=== PATIENT | male | born 1970 | race Asian ===

== ENCOUNTER 2017-05-17 05:23 | Outpatient (CLI) | payer OTHER | END 2017-05-17 05:28 | disposition short-term general hospital (02) | LOC: AMB 05:23 | DX: R56.9 Unspecified convulsions (principal); R41.82 Altered mental status, unspecified | CPT/HCPCS: A0425; A0427 ==

== ENCOUNTER 2017-06-11 06:44 | Outpatient (CLI) | payer OTHER | END 2017-06-11 06:48 | disposition short-term general hospital (02) | LOC: AMB 06:44 | DX: R56.9 Unspecified convulsions (principal) | CPT/HCPCS: A0425; A0427 ==

== ENCOUNTER 2017-06-11 06:50 | Inpatient (IN) | payer OTHER ==
[~2017-06-11] VITALS: Ht 175.3 cm; Wt 75.0 kg
[2017-06-11] VITALS (23 sets, daily range): BP systolic 101–149; BP diastolic 51–90; TEMP 97.1–99.1; Ht 175.3 cm; Wt 75.0 kg
[2017-06-11 07:35] LABS: PLATELET COUNT 270 K/uL (142-355)
[2017-06-11 07:39] LABS: POTASSIUM 4.3 mmol/L (3.6-5.2)
--- NOTE | 2017-06-11 13:35 | NUR ---
PT TO ICU VIA WC FROM ER. PT AMBULATES TO PCU2 BED WITH ASSIST & IMMEDIATELY BACK TO SLEEP.PT C/O SEQUEIRA. REPORTED TO ROQUE DAMICO RN/NAHOMY FOR KENN SCRUGGS APRN.
--- NOTE | 2017-06-11 14:45 | NUR ---
PT ASSISTED TO AMBULATE TO BATHROOM TO VOID & BM.
--- NOTE | 2017-06-11 15:12 | NUR ---
PT MEDICATED WITH TORADOL 30 MG IV FOR SEQUEIRA # 9 ON PAIN SCALE. NO NAUSEA. PT BACK TO SLEEP IMMEDIATELY.
--- NOTE | 2017-06-11 18:00 | NUR ---
PT SLLEEPING. NO C/O. NO SEIZURE ACTIVITTY.
[2017-06-12] VITALS (18 sets, daily range): BP systolic 95–139; BP diastolic 51–91; TEMP 98.6–98.9
[2017-06-12 06:28] LABS: PLATELET COUNT 223 K/uL (142-355)
[2017-06-12 06:40] LABS: POTASSIUM 3.7 mmol/L (3.6-5.2); SODIUM 138 mmol/L (136-145)
[2017-06-12 07:00] LABS: PARTIAL THROMBOPLASTIN TIME 23.6 SECONDS (24.5-33.6)
--- NOTE | 2017-06-12 08:30 | NUR ---
PT RESTING IN BED WANTS TO GET UP AND GO TO BR, REFUSED TO USE BSC. ASSISTED PT UP PT AMBULATED TO BR, VOIDED AND BM. ANNA WELL NO SEIZURE ACTIVITY NOTED.
--- NOTE | 2017-06-12 10:00 | NUR ---
PT RESTING IN BED SLEEPING AT INTERVALS NO COMPLAINTS DR GOMEZ AND KENN SCRUGGS EXECUTIVE COMMUNICATIONS MANAGER VISITED CHECKED PT . RECIEVED ORDERS.
--- NOTE | 2017-06-12 13:00 | NUR ---
PT UP IN BED VISITORS EATING REGULAR LUNCH NO SEIZURE ACTIVITY NOTED.
--- NOTE | 2017-06-12 16:00 | NUR ---
VOIDED 300 ML DARK URINE. ENCOURAGED PT TO DRINK MORE WATER. NO IV FLUIDS PT IS HEPLOCKED.
--- NOTE | 2017-06-12 17:00 | NUR ---
DR DAUGHERTY VISITED CHECKED PT. RECIEVED ORDER EARLIER FOR EEG, REPORT TO RESP. WILL DO EEG IN AM. PT RESTING IN BED NO SEIZURE ACTIVITY NOTED TODAY PT TAKING PO FLUIDS.
--- NOTE | 2017-06-12 20:07 | NUR ---
IV 20G STARTED X1 ATTEMPT TO THE LEFT FOREARM SALINE LOCKED AT THIS TIME.
--- NOTE | 2017-06-12 20:08 | NUR ---
RECEIVED PATIENT LAYING IN SUPINE POSITION. ASSESSMENT COMPLETED AT THIS TIME. PATIENT VOICES NO COMPLAINS AT PRESENT TIME. IV 20G NOTED TO THE LEFT FOREARM SALINE LOCKED. BED LOCKED IN LOW POSITION, SIDERAILS UP X2, CALL [place] WITHIN REACH.
[2017-06-13] VITALS (7 sets, daily range): BP systolic 115–147; BP diastolic 62–89; TEMP 98.8
[2017-06-13 06:25] LABS: PLATELET COUNT 228 K/uL (142-355)
[2017-06-13 06:37] LABS: POTASSIUM 3.3 mmol/L (3.6-5.2); SODIUM 139 mmol/L (136-145)
--- NOTE | 2017-06-13 08:00 | NUR ---
PT RESTING IN BED THIS AM AWAKEN AM CARE UP IN BED FOR BREAKFAST. WANTS TO GET UP AND WALK AROUND.
--- NOTE | 2017-06-13 10:30 | NUR ---
PT AMBULATED TO RESP DEPT FOR EEG. NO SEIZURE ACTIVITY NOTED THIS AM. PT RECIEVED AM MEDS.
--- NOTE | 2017-06-13 14:55 | NUR ---
PT TRANSFERRED FROM PCU TO FLOOR AT THIS TIME VIA W/C. ASSESSMENT COMPLETE. PT HAS NO QUESTIONS/COMPLAINTS. PT SITTING UP IN BED WATCHING TV. WILL CONT TO MONITOR.
[2017-06-14 05:54] LABS: PLATELET COUNT 211 K/uL (142-355)
[2017-06-14 06:11] LABS: POTASSIUM 3.4 mmol/L (3.6-5.2); SODIUM 141 mmol/L (136-145)
--- NOTE | 2017-06-14 06:35 | NUR ---
0630 PATIENT LAYING IN BED WITH EYES OPEN WATCHING T.V. NO ACUTE DISTRESS NOTED.
[2017-06-14 08:00] VITALS: BP 132/81; TEMP 98.3
--- NOTE | 2017-06-14 08:24 | NUR ---
PT AMBULATING IN HALLWAY AT THIS TIME. GAIT STEADY
[2017-06-14] MEDS ORDERED: KEPPRA 500MG TAB PO (09:49)
--- NOTE | 2017-06-14 10:30 | NUR ---
DC INSTRUCTIONS GIVEN TO PT. PT VERBALIZED UNDERSTANDING. IV DC'D WITH CANNULA INTACT AND SITE CARE PROVIDED. NAD NOTED. PT LEFT AMBULATORY REQUESTED WITH FAMILY.
== END 2017-06-14 10:40 | disposition home or self-care (01) | DRG 101 ==
LOC: ED 06:50 → ICU 08:30 → ED 13:04 → ICU 06-12 13:20 → MED/SURG 06-13 15:30 → ICU 06-13 15:30 → MED/SURG 06-14 10:40
PROVIDERS: Specialist; ADMIT Emergency Medicine
DX: G40.89 Other seizures (principal); K21.9 Gastro-esophageal reflux disease without esophagitis; E87.6 Hypokalemia; F12.90 Cannabis use, unspecified, uncomplicated
CPT/HCPCS: 80053; 80164; 80185; 80307; 80320; 81000; 83735; 85027; 85610; 85651; 85730; 86039; 93005; 94760; 99220; A9576; G0378; G0479; J1165; J1885

== ENCOUNTER 2018-01-05 05:51 | Outpatient (CLI) | payer OTHER ==
[~2018-01-05 05:51] MED LIST: KEPPRA 500MG TAB PO
[2018-02-10] MEDS ORDERED: SPRITAM500 MG PO (10:27)
== END 2018-01-05 05:54 | disposition short-term general hospital (02) ==
LOC: AMB 05:51
DX: R56.9 Unspecified convulsions (principal); R10.84 Generalized abdominal pain
CPT/HCPCS: A0425; A0427

== ENCOUNTER 2018-01-05 05:59 | Emergency (ER) | payer OTHER ==
[~2018-01-05] VITALS: Ht 175.3 cm; Wt 77.1 kg
[2018-01-05 06:11] VITALS: TEMP 98.6
[2018-01-05 06:52] LABS: PLATELET COUNT 240 K/uL (142-355)
[2018-01-05 07:04] LABS: POTASSIUM 3.8 mmol/L (3.6-5.2)
[2018-01-05 10:30] VITALS: BP 128/89
[2018-02-10] MEDS ORDERED: SPRITAM500 MG PO (10:27)
== END 2018-01-05 10:31 | disposition home or self-care (01) ==
LOC: ED 05:59
DX: R56.9 Unspecified convulsions (principal); R10.9 Unspecified abdominal pain
CPT/HCPCS: 36415; 80053; 81000; 82150; 83690; 85027; 96365; 96374; 96375; 99284; Q9963

== ENCOUNTER 2018-02-10 10:04 | Emergency (ER) | payer OTHER ==
[~2018-02-10] VITALS: Ht 175.3 cm; Wt 74.8 kg
[2018-02-10 10:05] VITALS: TEMP 97.6
[2018-02-10] MEDS ORDERED: SPRITAM500 MG PO ×2 (10:27)
[2018-02-10 10:57] LABS: PLATELET COUNT 231 K/uL (142-355)
[2018-02-10 11:05] LABS: POTASSIUM 3.6 mmol/L (3.6-5.2)
[2018-02-10 13:40] VITALS: BP 141/80
[2018-02-12] MEDS ORDERED: PANTOPRAZOLE 40MG TA PO ×2 (09:25)
[2018-02-14] MEDS ORDERED: PANTOPRAZOLE 40MG TA PO ×2 (09:21)
[2018-02-14] MEDS ORDERED: DIVALPROEX500 MG PO ×2 (09:21)
== END 2018-02-10 13:40 | disposition home or self-care (01) ==
LOC: ED 10:04
PROVIDERS: Emergency Medicine
DX: K85.90 Acute pancreatitis without necrosis or infection, unspecified (principal); R10.13 Epigastric pain; G40.802 Other epilepsy, not intractable, without status epilepticus; K92.2 Gastrointestinal hemorrhage, unspecified
CPT/HCPCS: 36415; 80053; 82150; 82272; 83690; 85027; 96374; 96375; 99284; J1885; J2405; Q9963

== ENCOUNTER 2018-02-12 09:17 | Observation (INO) | payer OTHER ==
[~2018-02-12] VITALS: Ht 175.3 cm; Wt 68.5 kg
[2018-02-12] VITALS (9 sets, daily range): BP systolic 109–144; BP diastolic 49–82; TEMP 97.7–99.3; Ht 175.3 cm; Wt 68.5 kg
[~2018-02-12 09:17] MED LIST changes: -DIVALPROEX500 MG PO; -PANTOPRAZOLE 40MG TA PO
[2018-02-12] MEDS ORDERED: PANTOPRAZOLE 40MG TA PO (09:25)
[2018-02-12 09:43] LABS: PLATELET COUNT 247 K/uL (142-355)
[2018-02-13] VITALS: BP 117/63; TEMP 98.4
[2018-02-13 04:00] VITALS: BP 129/74; TEMP 98.5
[2018-02-13 05:33] LABS: PLATELET COUNT 202 K/uL (142-355)
[2018-02-13 06:05] LABS: POTASSIUM 3.5 mmol/L (3.6-5.2)
[2018-02-13 08:00] VITALS: BP 117/63; TEMP 98.3
[2018-02-13 12:00] VITALS: BP 116/66; TEMP 98.8
[2018-02-13 16:00] VITALS: BP 123/74; TEMP 98.9
[2018-02-13 20:00] VITALS: BP 117/69; TEMP 98.9
[2018-02-14] VITALS: BP 113/47; TEMP 98.8
[2018-02-14 04:00] VITALS: BP 112/52; TEMP 98.3
[2018-02-14 05:52] LABS: PLATELET COUNT 211 K/uL (142-355)
[2018-02-14 06:05] LABS: POTASSIUM 3.4 mmol/L (3.6-5.2)
[2018-02-14 08:00] VITALS: BP 123/53; TEMP 99
[2018-02-14] MEDS ORDERED: DIVALPROEX500 MG PO (09:21)
[2018-02-14] MEDS ORDERED: PANTOPRAZOLE 40MG TA PO (09:21)
--- NOTE | 2018-02-14 09:56 | NUR ---
IV D/C'D PER DOCTORS ORDERS. DISCHARGE INSTRUCTIONS GIVEN. PT IS TO FOLLOW UP WITH DR. DAUGHERTY ON 02/19/18 AND TO WALK INTO [facility] ONE DAY NEXT WEEK TO BE WORKED IN FOR AN APPOINTMENT. PT UNDERSTANDS FOLLOW UP INSTRUCTIONS. PT WISHES TO AMBULATE OUT OF THE HOSPITAL. NAD NOTED.
== END 2018-02-14 10:00 | disposition home or self-care (01) ==
LOC: ED 09:17 → MED/SURG 11:10
PROVIDERS: Family Medicine; ADMIT Emergency Medicine
DX: G40.89 Other seizures (principal); Z91.14 Patient's other noncompliance with medication regimen
CPT/HCPCS: 80053; 80164; 80307; 81000; 82542; 85027; 87040; 96365; 96366; 96375; 96376; 99220; 99284; G0378; J0696; J2060

== ENCOUNTER → 2018-02-12 | Outpatient (CLI) | payer OTHER ==
[~2018-02-12] MED LIST changes: +DIVALPROEX500 MG PO; +PANTOPRAZOLE 40MG TA PO; +SPRITAM500 MG PO
== END | disposition short-term general hospital (02) ==
LOC: AMB 08:52
DX: G40.89 Other seizures (principal)
CPT/HCPCS: A0425; A0427

== ENCOUNTER 2018-06-15 10:43 | Emergency (ER) | payer OTHER ==
[~2018-06-15] VITALS: Ht 175.3 cm; Wt 68.5 kg
[~2018-06-15 10:43] MED LIST changes: +DIVALPROEX500 MG PO; +PANTOPRAZOLE 40MG TA PO
[2018-06-15 10:54] LABS: PLATELET COUNT 315 K/uL (142-355)
[2018-06-15 11:01] LABS: POTASSIUM 3.8 mmol/L (3.6-5.2)
[2018-06-15 15:08] VITALS: BP 136/81; TEMP 97.8
== END 2018-06-15 15:24 | disposition home or self-care (01) ==
LOC: ED 10:43
PROVIDERS: Family Medicine
DX: R56.9 Unspecified convulsions (principal)
CPT/HCPCS: 80053; 80164; 80307; 81000; 85027; 96374; 99284

== ENCOUNTER 2020-02-02 09:52 | Emergency (ER) | payer OTHER ==
[~2020-02-02] VITALS: Ht 175.3 cm; Wt 71.7 kg
[~2020-02-02 09:52] MED LIST changes: +DIVALPROEX500 M1 PO
[2020-02-02 10:35] LABS: PLATELET COUNT 154 K/uL (142-355)
[2020-02-02 10:37] LABS: POTASSIUM 4.2 mmol/L (3.6-5.2)
[2020-02-02 10:45] LABS: PARTIAL THROMBOPLASTIN TIME 22.1 SECONDS (24.5-33.6)
[2020-02-02 12:26] VITALS: BP 133/80
== END 2020-02-02 12:28 | disposition home or self-care (01) ==
LOC: ED 09:52
PROVIDERS: Family Medicine
DX: R56.9 Unspecified convulsions (principal); F17.210 Nicotine dependence, cigarettes, uncomplicated
CPT/HCPCS: 80053; 80164; 81000; 85027; 85610; 85730; 99283

== ENCOUNTER 2020-07-25 10:40 | Emergency (ER) | payer OTHER ==
[~2020-07-25] VITALS: Ht 175.3 cm; Wt 68.0 kg
[2020-07-25 12:01] LABS: PLATELET COUNT 159 K/uL (142-355)
[2020-07-25 12:10] LABS: POTASSIUM 4.1 mmol/L (3.6-5.2)
[2020-07-25 14:20] VITALS: BP 134/77; TEMP 98.5
== END 2020-07-25 14:20 | disposition home or self-care (01) ==
LOC: ED 10:49
PROVIDERS: Emergency Medicine Emergency Medical Services
DX: R10.84 Generalized abdominal pain (principal)
CPT/HCPCS: 80053; 80307; 80320; 81000; 82150; 83690; 83735; 85027; 96360; 96361; 96375; 99284; J1885; J2405; J3490

== ENCOUNTER 2020-09-08 08:17 | Outpatient (CLI) | payer OTHER | END 2020-09-08 21:25 | disposition home or self-care (01) | LOC: RESP 08:17 | PROVIDERS: ATTEND Specialist | DX: G40.909 Epilepsy, unspecified, not intractable, without status epilepticus (principal) ==

== ENCOUNTER 2020-12-15 08:56 | Emergency (ER) | payer OTHER ==
[~2020-12-15] VITALS: Ht 175.3 cm; Wt 65.8 kg
[2020-12-15 09:14] VITALS: BP 145/94; TEMP 98.4
[2020-12-15 09:25] LABS: PLATELET COUNT 133 K/uL (142-355)
[2020-12-15 09:47] LABS: POTASSIUM 4.4 mmol/L (3.6-5.2)
== END 2020-12-15 10:20 | disposition home or self-care (01) ==
LOC: ED 08:56
PROVIDERS: Hospitalist
DX: K29.60 Other gastritis without bleeding (principal); K27.9 Peptic ulcer, site unspecified, unspecified as acute or chronic, without hemorrhage or perforation
CPT/HCPCS: 80053; 80320; 82150; 82272; 83690; 85027; 96360; 96374; 99284; J2405